=== PATIENT | male | born 1990 | race Caucasian/White ===

== ENCOUNTER 2018-06-30 11:30 | Emergency (ER) | payer SELFPAY ==
[2018-06-30] MEDS: HYDROCODONE/APAP (5/325) TAB PO (12:47)
[2018-06-30] MEDS: DIAZEPAM 5 MG TAB PO (12:47)
[2018-06-30] MEDS: METHYLPREDNISOLONE 125 MG INJ IM (12:48)
[2018-06-30] MEDS: KETOROLAC 60 MG INJ IM (12:48)
== END 2018-06-30 13:55 | disposition home or self-care (01) ==
LOC: FTE 11:30
DX: M54.41 Lumbago with sciatica, right side (principal); M25.561 Pain in right knee; F17.210 Nicotine dependence, cigarettes, uncomplicated
CPT/HCPCS: 72100; 73562; 96372; 99284-25